=== PATIENT | female | born 1985 | race African-American/Black ===

== ENCOUNTER 2023-01-20 18:11 | Emergency (ER) | payer BC, OTHER ==
[~2023-01-20] VITALS: Ht 175.3 cm; Wt 68.0 kg
[2023-01-20 18:37] VITALS: BP 115/82; TEMP 98.2; O2SAT 99
== END 2023-01-20 19:53 | disposition left against medical advice (07) ==
LOC: ER 18:14
DX: M54.9 Dorsalgia, unspecified (principal); Z53.21 Procedure and treatment not carried out due to patient leaving prior to being seen by health care provider